=== PATIENT | female | born 1990 | race Two or more races ===

== ENCOUNTER 2017-09-14 09:50 | Emergency (ER) | payer OTHER ==
[~2017-09-14] VITALS: Ht 167.6 cm; Wt 54.4 kg
== END 2017-09-14 12:45 | disposition home or self-care (01) ==
LOC: ER 09:50
DX: B34.9 Viral infection, unspecified (principal); M54.89 Other dorsalgia

== ENCOUNTER 2018-10-04 12:34 | Emergency (ER) | payer OTHER ==
[~2018-10-04] VITALS: Ht 167.6 cm; Wt 52.2 kg
== END 2018-10-04 15:29 | disposition home or self-care (01) ==
LOC: ER 12:34
DX: K29.70 Gastritis, unspecified, without bleeding (principal)

== ENCOUNTER 2019-03-25 13:24 | Outpatient (CLI) | payer OTHER | END 2019-03-25 15:00 | disposition home or self-care (01) | LOC: LAB 13:24 → RAD 13:24 | DX: M25.541 Pain in joints of right hand (principal) ==